=== PATIENT | female | born 1980 ===

== ENCOUNTER 2017-01-30 19:57 | Emergency (ER) | payer MEDICAID ==
[2017-01-30 20:08] VITALS: RESP 18; TEMP 98.1; BMI 34.5
[2017-01-30] MEDS ORDERED: Albuterol-Ipratrop 3 mg / 0.5 (3 ml) UD IH STA ×2 (20:45→22:02)
--- NOTE | 2017-01-30 22:21 | ED PDOC ---
Arrival/HPI - General Chief Complaint: Cough, Cold, Congestion Time Seen by Provider: 01/30/17 20:33 Historian: Patient - History of Present Illness Narrative History of Present Illness (Text): 01/30/17 22:13 36yr old female presents today with nasal congestion and sore throat and cough since Friday. Patient now complaining of a left-sided upper back pain that she describes as sharp and stabbing. Denies any urinary symptoms. Denies fevers at home. Patient with positive sick contacts at home. Denies chest pain. Complaining of productive cough. Denies abdominal pain. Patient states she has a history of asthma and has been using her inhaler frequently. Patient also complaining of headache. Patient states she is a history of migraines. Time/Duration: 1 week Symptom Onset: Gradual Symptom Course: Worsening Quality: Aching Severity Level: 4 Past Medical History - Provider Review Nursing Documentation Reviewed: Yes - Travel History Have you recently traveled outside [place] w/in the past 3 mons?: No - Tetanus Immunization Tetanus Immunization: Unknown - Cardiac Hx Cardiac Disorders: No - Pulmonary Hx Asthma: Yes - Neurological Hx Migraine: Yes - HEENT Hx HEENT Disorder: No - Renal Hx Renal Disorder: No - Endocrine/Metabolic Hx Endocrine Disorders: No - Hematological/Oncological Hx Blood Disorders: No - Integumentary Hx Dermatological Disorder: No - Musculoskeletal/Rheumatological Hx Musculoskeletal Disorders: No - Gastrointestinal Hx Gastrointestinal Disorders: No - Genitourinary/Gynecological Hx Genitourinary Disorders: No - Psychiatric Hx Psychophysiologic Disorder: No Hx Substance Use: No Family/Social History - Physician Review Nursing Documentation Reviewed: Yes Family/Social History: Unknown Family HX Smoking Status: Never Smoked Hx Alcohol Use: No Hx Substance Use: No Allergies/Home Meds Allergies/Adverse Reactions: Allergies Penicillins Allergy (Verified 01/30/17 20:08) SWELLING Review of Systems - Review of Systems Constitutional: absent: Fatigue, Fevers ENT: Sore Throat, Sinus Congestion Respiratory: Cough. absent: SOB Cardiovascular: absent: Chest Pain Gastrointestinal: absent: Abdominal Pain, Nausea, Vomiting Genitourinary Female: absent: Dysuria, Frequency, Hematuria Musculoskeletal: Back Pain. absent: Arthralgias, Neck Pain Skin: absent: Rash, Pruritis Neurological: Headache. absent: Dizziness Psychiatric: absent: Anxiety, Depression Physical Exam Vital Signs Reviewed: Yes Vital Signs Temp Pulse Resp BP Pulse Ox 01/30/17 20:08 98.1 F 83 18 105/74 99 01/30/17 20:07 98.1 F 83 18 105/74 99 Temperature: Afebrile Blood Pressure: Normal Pulse: Regular Respiratory Rate: Normal Appearance: Positive for: Well-Appearing, Non-Toxic, Comfortable Pain Distress: None Mental Status: Positive for: Alert and Oriented X 3 - Systems Exam Head: Present: Atraumatic Conjunctiva: Present: Normal Ears: Present: Normal, NORMAL TM Mouth: Present: Moist Mucous Membranes Pharnyx: Present: Normal. No: ERYTHEMA, EXUDATE, TONSILS ENLARGED, Peritonsilar Swelling, Uvular Deviation, Muffled/Hoarse Voice Nose (External): Present: Atraumatic Nose (Internal): Present: Normal Inspection Neck: Present: Normal Range of Motion, Trachea Midline. No: Lymphadenopathy Respiratory/Chest: Present: Good Air Exchange, Wheezes (slight wheezing noted). No: Clear to Auscultation, Respiratory Distress, Accessory Muscle Use Cardiovascular: Present: Regular Rate and Rhythm Abdomen: No: Tenderness Back: Present: Normal Inspection. No: CVA Tenderness, Midline Tenderness, Paraspinal Tenderness Skin: Present: Warm, Dry, Normal Color. No: Rashes Psychiatric: Present: Alert, Oriented x 3 Medical Decision Making ED Course and Treatment: 01/30/17 22:59 36yr old female with hx of asthma with URI symptoms with cough and left sided upper back pain cxr; wnl pt given duoneb x 2 prednisone 60mg tylenol po UA: trace leukocytes, 1-3 wbcs; will send urine culture. no urinary symptoms. pt reassessment; feeling better, lungs cta bilaterally. zithromax given po motrin added. pt reassessment; sleeping in er. no distress. discussed all results in depth with patient; advised f/u with PMD, advised zithromax, albuterol, prednisone as prescribed. advised immediate return if symptoms worsen,persist or if new symptoms develop. impression: cough, nasal congestion, back pain Motrin every 6 hours as needed for pain Zithromax once daily 4 days Prednisone daily 4 days Albuterol 2 puffs every 4-6 hours as needed for cough Follow-up with a primary care physician within the next 2 days Return immediately if symptoms worsen or persist or if new symptoms develop on high fevers, increasing pain, , chest pain, shortness of breath or if any other concerning symptoms develop 01/31/17 01:11 - Lab Interpretations Lab Results: Lab Results 01/30/17 22:57: Urine Color Yellow, Urine Appearance Sl cloudy, Urine pH 6.0, Ur Specific [place] 1.015, Urine Protein Negative, Urine Glucose (UA) Negative, Urine Ketones Negative, Urine Blood Negative, Urine Nitrate Negative, Urine Bilirubin Negative, Urine Urobilinogen 0.2, Ur Leukocyte Esterase Small H, Urine RBC 0 - 2, Urine WBC 1 - 3, Ur Epithelial Cells 3 - 4, Urine Bacteria Rare - RAD Interpretation Radiology Orders: 01/30/17 20:45 CHEST TWO VIEWS (PA/LAT) [RAD] Stat - Medication Orders Current Medication Orders: Discontinued Medications Acetaminophen (Tylenol 325mg Tab) 975 mg PO STAT STA Stop: 01/30/17 20:48 Last Admin: 01/30/17 21:00 Dose: 975 mg Albuterol/Ipratropium (Duoneb 3 Mg/0.5 Mg (3 Ml) Ud) 3 ml IH STAT STA Stop: 01/30/17 20:46 Last Admin: 01/30/17 21:00 Dose: 3 ml Albuterol/Ipratropium (Duoneb 3 Mg/0.5 Mg (3 Ml) Ud) 3 ml IH STAT STA Stop: 01/30/17 22:03 Last Admin: 01/30/17 23:07 Dose: 3 ml Azithromycin (Zithromax) 500 mg PO STAT STA PRN Reason: Protocol Stop: 01/31/17 00:29 Last Admin: 01/31/17 00:56 Dose: 500 mg Ibuprofen (Motrin Tab) 600 mg PO STAT STA Stop: 01/31/17 00:29 Last Admin: 01/31/17 00:56 Dose: 600 mg Prednisone (Prednisone Tab) 60 mg PO STAT ONE Stop: 01/30/17 22:04 Last Admin: 01/30/17 23:13 Dose: 60 mg Disposition/Present on Arrival - Present on Arrival Any Indicators Present on Arrival: No History of DVT/PE: No History of Uncontrolled Diabetes: No Urinary Catheter: No History of Decub. Ulcer: No History Surgical Site Infection Following: None - Disposition Have Diagnosis and Disposition been Completed?: Yes Diagnosis: Cough, Nasal congestion, Headache, Asthma Disposition: HOME/ ROUTINE Disposition Time: 01:13 Patient Plan: Discharge Patient Problems: Current Active Problems Problem Status Onset Asthma Acute Cough Acute Headache Acute Nasal congestion Acute Condition: GOOD Discharge Instructions (ExitCare): Cold Symptoms (ED), Acute Cough (ED) Additional Instructions: Motrin every 6 hours as needed for pain Zithromax once daily 4 days Prednisone daily 4 days Albuterol 2 puffs every 4-6 hours as needed for cough Follow-up with a primary care physician within the next 2 days Return immediately if symptoms worsen or persist or if new symptoms develop on high fevers, increasing pain, , chest pain, shortness of breath or if any other concerning symptoms develop Prescriptions: Albuterol HFA [Ventolin HFA 90 mcg/actuation (8 g)] 2 puff IH [id number] PRN #1 inhaler PRN Reason: Cough Albuterol 0.083% [Albuterol 0.083% Inhal Ce (2.5 mg/3 ml) UD] 1 vial IH TID PRN #1 packet PRN Reason: Cough Azithromycin [Zithromax] 250 mg PO DAILY #4 tab Fluticasone Nasal [Flonase] 2 spr NS DAILY #1 spr Ibuprofen [Motrin] 600 mg PO Q6H PRN #20 tab PRN Reason: pain/fever reduction Nebulizer [Compact Compressor Nebulizer] 1 dev XX PRN PRN #1 dev PRN Reason: Cough predniSONE [predniSONE Tab] 3 tab PO DAILY #12 tab Referrals: Deirdre Hodge MD [Primary Care Provider] - Follow up with primary Forms: [employer] ([place]), WORK NOTE
[2017-01-30 23:14] LABS: URINE BILIRUBIN NEGATIVE (NEGATIVE); URINE BLOOD NEGATIVE (NEGATIVE); URINE GLUCOSE (UA) NEGATIVE (NEGATIVE); URINE LEUKOCYTE ESTERASE SMALL Leu/uL (NEGATIVE); URINE NITRATE NEGATIVE (NEGATIVE); URINE PROTEIN NEGATIVE mg/dL (<30 mg/dL); URINE UROBILINOGEN 0.2 E.U./dL (<1 E.U./dL)
[2017-01-30 23:25] LABS: URINE APPEARANCE SL CLOUDY (CLEAR); URINE COLOR YELLOW (YELLOW)
[2017-01-30 23:33] LABS: URINE BACTERIA RARE (NEG); URINE RBC 0 - 2 /hpf (0-2)
[2017-01-31 01:34] VITALS: BP 105/79; PULSE 76; O2SAT 97
--- NOTE | 2017-01-31 09:18 | RAD ---
HISTORY: cough COMPARISON: No prior. TECHNIQUE: Chest PA and lateral FINDINGS: LUNGS: No active pulmonary disease. PLEURA: No significant pleural effusion identified. No pneumothorax apparent. CARDIOVASCULAR: Normal. OSSEOUS STRUCTURES: No significant abnormalities. VISUALIZED UPPER ABDOMEN: Normal. OTHER FINDINGS: None. IMPRESSION: No active disease.
== END 2017-01-31 01:34 | disposition home or self-care (01) ==
LOC: ED 19:57 → MERGE 19:57 → ED 01-31 01:34
DX: J45.909 Unspecified asthma, uncomplicated (principal); R51 Headache; R09.81 Nasal congestion; R05 Cough